=== PATIENT | female | born 1965 | race Caucasian/White ===

== ENCOUNTER 2018-01-24 11:29 | Day surgery (SDC) | payer BC ==
[~2018-01-24] VITALS: Ht 160.1 cm; Wt 118.1 kg
[2018-01-24] VITALS (12 sets, daily range): BP systolic 120–158; BP diastolic 69–106; PULSE 43–66
[2018-01-24 12:30] LABS: HEMATOCRIT 37.1 % (37.0-47.0); HEMOGLOBIN 11.9 g/dl (12.5-16.0); MEAN CELL VOLUME 92 fl (80.0-100.0); MEAN CORPUSCULAR HEMOGLOBIN 29 pg (27.0-31.0); MEAN CORPUSCULAR HGB CONC 32 g/dl (33.0-37.0); MEAN PLATELET VOLUME 9.6 fl (7.4-10.4); PLATELET COUNT 284 K/mm3 (130-400); RED BLOOD COUNT 4.05 M/mm3 (4.10-5.30); REDCELL DISTRIBUTION WIDTH-CV 13.1 % (11.5-14.5)
[2018-01-24 12:34] LABS: PROTHROMBIN TIME 11.4 SECONDS (9.7-12.8)
[2018-01-24 12:40] LABS: CALCIUM 8.8 mg/dL (8.4-10.2); CREATININE, serum 0.55 mg/dL (0.52-1.25); POTASSIUM 3.8 mmol/L (3.4-5.0)
[2018-01-24] MEDS ORDERED: HCTZ 25MG TAB25 MG PO (12:40)
[2018-01-24] MEDS ORDERED: COZAAR100 MG PO (12:41)
[2018-01-24] MEDS ORDERED: NORVASC 5MG5 MG/TAB PO (12:42)
[2018-01-24] MEDS ORDERED: ELIQUIS 5MG PO (12:42)
[2018-01-24] MEDS ORDERED: BYSTOLIC10 MG PO (12:42)
[2018-01-24] MEDS ORDERED: TYLENOL 325MG325 MG PO (12:43)
[2018-01-24] MEDS ORDERED: VITAMINC500CH (12:44)
[2018-01-24] MEDS ORDERED: IMODIUM A-D2 MG PO (12:45)
[2018-01-24] MEDS ORDERED: ZYRTEC 10MG10 MG PO (12:46)
== END 2018-01-24 18:44 | disposition home or self-care (01) ==
LOC: COL.CAR 11:29
PROVIDERS: Internal Medicine Cardiovascular Disease
DX: I25.10 Atherosclerotic heart disease of native coronary artery without angina pectoris (principal); I10 Essential (primary) hypertension; G47.33 Obstructive sleep apnea (adult) (pediatric); I82.532 Chronic embolism and thrombosis of left popliteal vein; E78.5 Hyperlipidemia, unspecified; E66.9 Obesity, unspecified; Z68.42 Body mass index [BMI] 45.0-49.9, adult; Z79.01 Long term (current) use of anticoagulants; Z87.891 Personal history of nicotine dependence; Z83.3 Family history of diabetes mellitus; Z82.49 Family history of ischemic heart disease and other diseases of the circulatory system; Z82.3 Family history of stroke
CPT/HCPCS: J1644; J2250; J3010; Q9967

== ENCOUNTER → 2019-07-09 | Outpatient (CLI) | payer BC ==
[~2019-07-09] MED LIST: BYSTOLIC10 MG PO; COZAAR100 MG PO; ELIQUIS 5MG PO; HCTZ 25MG TAB25 MG PO; IMODIUM A-D2 MG PO; NORVASC 5MG5 MG/TAB PO; TYLENOL 325MG325 MG PO; VITAMINC500CH; ZYRTEC 10MG10 MG PO
== END ==
LOC: MC.RAD 07-02 07:00
DX: N63.20 Unspecified lump in the left breast, unspecified quadrant (principal)